=== PATIENT | female | born 1975 | race African-American/Black ===

== ENCOUNTER 2017-08-22 10:06 | Emergency (ER) | payer OTHER ==
[~2017-08-22] VITALS: Ht 167.6 cm; Wt 86.4 kg
[~2017-08-22 10:06] MED LIST: ALBU8.5H8 IH; AMITRIPTYLINE; ASPI81 PO; BACL10TA PO; METO25 PO; PRED20 PO; TRAM50TA4 PO
[2017-08-22] MEDS ORDERED: ALBUTEROL SULFATE 5 MG/ML 20 ML NEB SOLN [BULK] NEB ONE (10:44)
[2017-08-22] MEDS ORDERED: IPRATROPIUM BROMIDE 0.5 MG/2.5 ML NEB SOLUTION NEB ONE (10:45)
[2017-08-22] MEDS ORDERED: PredniSONE 20 MG TABLET PO ONE (10:45)
[2017-08-22 11:08] LABS: BASOPHILS % (AUTO) 0.3 % (0.0-2.0); EOSINOPHILS % (AUTO) 1.7 % (1.0-6.0); HEMATOCRIT 37.3 % (36-46); HEMOGLOBIN 12.3 g/dL (12.0-16.0); LYMPHOCYTES # (AUTO) 2.3 K/uL (1.0-4.8); LYMPHOCYTES % (AUTO) 24.8 % (22.0-44.0); MEAN CORPUSCULAR HEMOGLOBIN 28.2 pg (26.0-34.0); MEAN CORPUSCULAR VOLUME 85 fL (80-100); MONOCYTES # (AUTO) 0.6 K/uL (0.1-1.0); NEUTROPHILS # (AUTO) 6.3 K/uL (1.8-7.7); NEUTROPHILS % (AUTO) 67.2 % (40.0-70.0); PLATELET COUNT (AUTO) 425 K/uL (150-450); RED BLOOD CELL COUNT(AUTO) 4.37 MIL/uL (4.00-5.20); WHITE BLOOD COUNT (AUTO) 9.4 K/uL (4.5-11.0)
[2017-08-22 11:17] LABS: ANION GAP 8 mmol/L (8-16); CARBON DIOXIDE 32 mmol/L (22-29); CHLORIDE 102 mmol/L (98-107); GLOMERULAR FILTR. RATE CALC > 60 mL/min (>60); POTASSIUM 3.7 mmol/L (3.5-5.1); SODIUM SERUM 142 mmol/L (136-145); UREA NITROGEN, BLOOD 8 mg/dL (7-18)
[2017-08-22 11:23] LABS: ALANINE AMINOTRANSFERASE 31 U/L (12-78); ALBUMIN 3.8 g/dL (3.4-5.0); ASPARTATE AMINOTRANSFERASE 15 U/L (15-37); BILIRUBIN,TOTAL 0.5 mg/dL (0.1-1.0)
[2017-08-22] MEDS ORDERED: 0.9% SODIUM CHLORIDE 5 ML NEB SOLUTION NEB ONE (11:28)
[2017-08-22 11:29] LABS: B-TYPE NATRIURETIC PEPTIDE 18 pg/mL (0-100)
[2017-08-22] MEDS ORDERED: ONDANSETRON HCL 4 MG/2 ML VIAL IVP ONE (11:30)
[2017-08-22] MEDS ORDERED: MORPHINE SULFATE 4 MG/ML SYRINGE IVP ONE (11:30)
[2017-08-22 12:12] LABS: INFLUENZA TYPE B NEGATIVE FOR TYPE B (NEGATIVE)
[2017-08-22 13:34] VITALS: BP 164/104
== END 2017-08-22 14:02 | disposition home or self-care (01) ==
LOC: EMS 10:07
DX: D86.0 Sarcoidosis of lung (principal); I10 Essential (primary) hypertension; J45.909 Unspecified asthma, uncomplicated; M79.7 Fibromyalgia; Z79.82 Long term (current) use of aspirin; Z88.0 Allergy status to penicillin; G43.909 Migraine, unspecified, not intractable, without status migrainosus
CPT/HCPCS: 36415; 71010; 80053; 83690; 83880; 84484; 84703; 85025; 87804; 93005; 94644; 96374; 96375; 99285; J2270; J2405; J7512; J7611

== ENCOUNTER 2018-03-08 15:08 | Emergency (ER) | payer OTHER ==
[~2018-03-08] VITALS: Ht 170.2 cm; Wt 84.5 kg
[2018-03-08] MEDS ORDERED: CYCL10TA7 PO (15:24)
[2018-03-08] MEDS ORDERED: CETI10TA58 PO (15:24)
[2018-03-08] MEDS ORDERED: FOLI1TAB15 PO (15:24)
[2018-03-08] MEDS ORDERED: LINA290C PO (15:24)
[2018-03-08] MEDS ORDERED: OMEP40CA12 PO (15:24)
[2018-03-08] MEDS ORDERED: FLUC150T66 PO (15:24)
[2018-03-08] MEDS ORDERED: HYDR200T4 PO (15:24)
[2018-03-08] MEDS ORDERED: AMLO5TAB66 PO (15:24)
[2018-03-08] MEDS ORDERED: TRAM50TA4 PO (15:24)
[2018-03-08] MEDS ORDERED: METO50 PO (15:24)
[2018-03-08] MEDS ORDERED: AMIT100T2 PO (15:24)
[2018-03-08] MEDS ORDERED: ALBU2.5V2 NEB (15:24)
[2018-03-08] MEDS ORDERED: ONDANSETRON HCL 4 MG/2 ML VIAL IVP ONE (15:45)
[2018-03-08] MEDS ORDERED: KETOROLAC TROMETHAMINE 30 MG/ML VIAL IVP ONE (15:45)
[2018-03-08] MEDS ORDERED: SODIUM CHLORIDE 0.9% 1,000 ML IV ONE (15:45)
[2018-03-08 16:05] LABS: BASOPHILS % (AUTO) 1.2 % (0.0-2.0); EOSINOPHILS % (AUTO) 1.8 % (1.0-6.0); HEMATOCRIT 36.8 % (36-46); HEMOGLOBIN 12.1 g/dL (12.0-16.0); LYMPHOCYTES # (AUTO) 2.2 K/uL (1.0-4.8); LYMPHOCYTES % (AUTO) 30.7 % (22.0-44.0); MEAN CORPUSCULAR VOLUME 82 fL (80-100); MONOCYTES # (AUTO) 0.6 K/uL (0.1-1.0); NEUTROPHILS # (AUTO) 4.2 K/uL (1.8-7.7); NEUTROPHILS % (AUTO) 58.3 % (40.0-70.0); PLATELET COUNT (AUTO) 431 K/uL (150-450); RED CELL DISTRIBUTION WIDTH 15.3 % (11.5-14.5)
[2018-03-08 16:12] LABS: ANION GAP 5 mmol/L (8-16); CALCIUM, TOTAL 8.6 mg/dL (8.8-10.5); CARBON DIOXIDE 27 mmol/L (22-29); CHLORIDE 105 mmol/L (98-107); CREATININE 0.96 mg/dL (0.60-1.30); GLOMERULAR FILTR. RATE CALC > 60 mL/min (>60); GLUCOSE,RANDOM 84 mg/dL (70-110); POTASSIUM 3.8 mmol/L (3.5-5.1); SODIUM SERUM 137 mmol/L (136-145); UREA NITROGEN, BLOOD 9 mg/dL (7-18)
[2018-03-08 16:18] LABS: ALANINE AMINOTRANSFERASE 29 U/L (12-78); ALBUMIN 3.8 g/dL (3.4-5.0); ALKALINE PHOSPHATASE 73 U/L (46-116); ASPARTATE AMINOTRANSFERASE 18 U/L (15-37); BILIRUBIN,TOTAL 0.7 mg/dL (0.1-1.0); LIPASE 150 U/L (73-393); TOTAL PROTEIN, SERUM 7.5 g/dL (6.4-8.2)
[2018-03-08] MEDS ORDERED: HYDROCODONE/ACETAMINOPHEN 5-325 MG TABLET PO ONE (18:00)
[2018-03-08 18:07] VITALS: BP 169/89
== END 2018-03-08 18:09 | disposition home or self-care (01) ==
LOC: EMS 15:09
DX: D25.9 Leiomyoma of uterus, unspecified (principal); J45.909 Unspecified asthma, uncomplicated; I10 Essential (primary) hypertension; G43.909 Migraine, unspecified, not intractable, without status migrainosus; Z88.0 Allergy status to penicillin
CPT/HCPCS: 36415; 74176; 80053; 83690; 84703; 85025; 96361; 96374; 96375; 99285; J1885; J2405; J7030

== ENCOUNTER 2018-06-10 21:56 | Emergency (ER) | payer OTHER ==
[~2018-06-10] VITALS: Ht 165.1 cm; Wt 83.6 kg
[~2018-06-10 21:56] MED LIST changes: +ALBU2.5V2 NEB; -ALBU8.5H8 IH; +AMIT100T2 PO; -AMITRIPTYLINE; +AMLO5TAB66 PO; -BACL10TA PO; +CETI10TA58 PO; +CYCL10TA7 PO; +FLUC150T66 PO; +FOLI1TAB15 PO; +HYDR200T4 PO; +LINA290C PO; -METO25 PO; +METO50 PO; +OMEP40CA12 PO; -PRED20 PO
[2018-06-10] MEDS ORDERED: PRED20 PO (22:20)
[2018-06-10] MEDS ORDERED: METH2.5T6 PO (22:20)
[2018-06-10 23:13] LABS: EOSINOPHILS % (AUTO) 2.4 % (1.0-6.0); HEMATOCRIT 35.6 % (36-46); HEMOGLOBIN 11.7 g/dL (12.0-16.0); LYMPHOCYTES # (AUTO) 2.2 K/uL (1.0-4.8); LYMPHOCYTES % (AUTO) 25.5 % (22.0-44.0); MEAN CORPUSCULAR HEMOGLOBIN 26.1 pg (26.0-34.0); MEAN CORPUSCULAR HGB CONC 32.8 G/dL (31.0-37.0); MEAN CORPUSCULAR VOLUME 80 fL (80-100); MONOCYTES # (AUTO) 1.1 K/uL (0.1-1.0); MONOCYTES % (AUTO) 12.6 % (2.0-9.0); NEUTROPHILS # (AUTO) 5.1 K/uL (1.8-7.7); NEUTROPHILS % (AUTO) 58.5 % (40.0-70.0); PLATELET COUNT (AUTO) 445 K/uL (150-450); RED BLOOD CELL COUNT(AUTO) 4.48 MIL/uL (4.00-5.20); RED CELL DISTRIBUTION WIDTH 15.6 % (11.5-14.5)
[2018-06-10 23:22] LABS: ANION GAP 10 mmol/L (8-16); CALCIUM, TOTAL 8.8 mg/dL (8.8-10.5); CARBON DIOXIDE 26 mmol/L (22-29); CHLORIDE 104 mmol/L (98-107); CREATININE 1.02 mg/dL (0.60-1.30); GLOMERULAR FILTR. RATE CALC > 60 mL/min (>60); GLUCOSE,RANDOM 96 mg/dL (70-110); POTASSIUM 3.7 mmol/L (3.5-5.1); SODIUM SERUM 140 mmol/L (136-145); UREA NITROGEN, BLOOD 7 mg/dL (7-18)
[2018-06-10 23:27] LABS: ALANINE AMINOTRANSFERASE 26 U/L (12-78); ALBUMIN 3.7 g/dL (3.4-5.0); ALKALINE PHOSPHATASE 72 U/L (46-116); ASPARTATE AMINOTRANSFERASE 14 U/L (15-37); BILIRUBIN,TOTAL 0.3 mg/dL (0.1-1.0); TOTAL PROTEIN, SERUM 7.4 g/dL (6.4-8.2)
[2018-06-11 01:17] VITALS: BP 159/97
[2018-06-11 02:00] LABS: APPEARANCE,URINE CLEAR (CLEAR); BILIRUBIN,URINE NEGATIVE (NEGATIVE); GLUCOSE, URINE (UA) NEGATIVE (NEGATIVE); KETONES,URINE NEGATIVE (NEGATIVE); LEUKOCYTE ESTERASE ,URINE SMALL (NEGATIVE); NITRATE,URINE NEGATIVE (NEGATIVE); OCCULT BLOOD,URINE TRACE (NEGATIVE); PH,URINE 5.5 (5.0-8.0); PROTEIN,URINE NEGATIVE (NEGATIVE); UROBILINOGEN,URINE 0.2 mg/dL (<=1.0)
[2018-06-11 02:13] LABS: BACTERIA,URINE None Seen /HPF (None Seen)
[2018-06-11 02:14] LABS: SQUAMOUS EPITHELIAL CELL,UR Moderate /LPF (None Seen)
== END 2018-06-11 01:47 | disposition home or self-care (01) ==
LOC: EMS 21:56
DX: I10 Essential (primary) hypertension (principal); R07.89 Other chest pain; R10.9 Unspecified abdominal pain; J44.9 Chronic obstructive pulmonary disease, unspecified; M79.7 Fibromyalgia; G43.909 Migraine, unspecified, not intractable, without status migrainosus; D25.9 Leiomyoma of uterus, unspecified; Z98.51 Tubal ligation status; D86.0 Sarcoidosis of lung; Z88.0 Allergy status to penicillin; Z79.899 Other long term (current) drug therapy
CPT/HCPCS: 93005; 99285

== ENCOUNTER 2018-10-05 17:26 | Emergency (ER) | payer OTHER ==
[~2018-10-05] VITALS: Ht 175.3 cm; Wt 90.9 kg
[~2018-10-05 17:26] MED LIST changes: -ASPI81 PO; -FLUC150T66 PO; +METH2.5T6 PO; +PRED20 PO
[2018-10-05] MEDS ORDERED: SODIUM CHLORIDE 0.9% 1,000 ML IV ONE (19:15)
[2018-10-05] MEDS ORDERED: ONDANSETRON HCL 4 MG/2 ML VIAL IVP ONE (19:15)
[2018-10-05] MEDS ORDERED: FentaNYL CITRATE-PF 100 MCG/2 ML VIAL IVP ONE (20:00)
[2018-10-05 20:16] LABS: BASOPHILS % (AUTO) 0.9 % (0.0-2.0); EOSINOPHILS % (AUTO) 2.2 % (1.0-6.0); HEMATOCRIT 37.9 % (36-46); HEMOGLOBIN 12.4 g/dL (12.0-16.0); LYMPHOCYTES # (AUTO) 5.7 K/uL (1.0-4.8); LYMPHOCYTES % (AUTO) 50.9 % (22.0-44.0); MEAN CORPUSCULAR HEMOGLOBIN 26.1 pg (26.0-34.0); MEAN CORPUSCULAR HGB CONC 32.6 G/dL (31.0-37.0); MEAN CORPUSCULAR VOLUME 80 fL (80-100); MONOCYTES # (AUTO) 1.4 K/uL (0.1-1.0); MONOCYTES % (AUTO) 12.4 % (2.0-9.0); NEUTROPHILS # (AUTO) 3.7 K/uL (1.8-7.7); NEUTROPHILS % (AUTO) 33.6 % (40.0-70.0); PLATELET COUNT (AUTO) 458 K/uL (150-450); RED BLOOD CELL COUNT(AUTO) 4.74 MIL/uL (4.00-5.20)
[2018-10-05 20:23] LABS: ANION GAP 10 mmol/L (8-16); CALCIUM, TOTAL 9.3 mg/dL (8.8-10.5); CARBON DIOXIDE 27 mmol/L (22-29); CHLORIDE 103 mmol/L (98-107); CREATININE 0.93 mg/dL (0.60-1.30); GLOMERULAR FILTR. RATE CALC > 60 mL/min (>60); GLUCOSE,RANDOM 95 mg/dL (70-110); POTASSIUM 3.5 mmol/L (3.5-5.1); SODIUM SERUM 140 mmol/L (136-145); UREA NITROGEN, BLOOD 16 mg/dL (7-18)
[2018-10-05 20:34] LABS: ALANINE AMINOTRANSFERASE 43 U/L (12-78); ALBUMIN 3.6 g/dL (3.4-5.0); ALKALINE PHOSPHATASE 66 U/L (46-116); ASPARTATE AMINOTRANSFERASE 24 U/L (15-37); BILIRUBIN,TOTAL 0.4 mg/dL (0.1-1.0); HCG,QUANTITATIVE < 1 mIU/mL (0-6); LIPASE 150 U/L (73-393); TOTAL PROTEIN, SERUM 7.8 g/dL (6.4-8.2)
[2018-10-05 20:43] LABS: LACTIC ACID 1.5 mmol/L (0.4-2.0)
[2018-10-05] MEDS ORDERED: IOVERSOL 350 MG/ML 100 ML VIAL ONE (21:00)
[2018-10-05] MEDS ORDERED: SODIUM CHLORIDE 0.9% 100 ML ONE (21:00)
[2018-10-05] MEDS ORDERED: LOPERAMIDE HCL 2 MG CAPSULE PO ONE (23:00)
[2018-10-05] MEDS ORDERED: TraMADol HCL 50 MG TABLET PO ONE (23:00)
[2018-10-05] MEDS ORDERED: CYCLOBENZAPRINE HCL 10 MG TABLET PO ONE (23:00)
[2018-10-06] MEDS ORDERED: GADOBUTROL 1 MMOL/ML 10 ML VIAL IVP ONE (01:19)
[2018-10-06 03:39] VITALS: BP 136/84
== END 2018-10-06 03:46 | disposition home or self-care (01) ==
LOC: EMS 17:27
DX: R10.84 Generalized abdominal pain (principal); M79.7 Fibromyalgia; D86.9 Sarcoidosis, unspecified; R11.10 Vomiting, unspecified; D25.9 Leiomyoma of uterus, unspecified; K86.89 Other specified diseases of pancreas; I10 Essential (primary) hypertension; J45.909 Unspecified asthma, uncomplicated; Z88.0 Allergy status to penicillin
CPT/HCPCS: 36415; 71045; 71260; 74177; 74183; 80053; 82962; 83605; 83690; 84484; 84702; 85025; 93005; 96361; 96374; 96375; 99285; A9585; J2405; J3010; J7030; J7050; Q9967; 72193; 74160

== ENCOUNTER 2018-12-28 20:11 | Emergency (ER) | payer OTHER ==
[~2018-12-28] VITALS: Ht 167.6 cm; Wt 89.1 kg
[2018-12-28] MEDS ORDERED: KETOROLAC TROMETHAMINE 10 MG TABLET PO ONE (21:45)
[2018-12-28] MEDS ORDERED: DEXAMETHASONE 4 MG TABLET PO ONE (21:45)
[2018-12-28] MEDS ORDERED: METOCLOPRAMIDE HCL 10 MG TABLET PO ONE (21:45)
[2018-12-28] MEDS ORDERED: DiphenhydrAMINE HCL 25 MG CAPSULE PO ONE (21:45)
[2018-12-28 21:51] LABS: BASOPHILS % (AUTO) 1.2 % (0.0-2.0); EOSINOPHILS % (AUTO) 2.4 % (1.0-6.0); HEMATOCRIT 37.1 % (36-46); HEMOGLOBIN 11.9 g/dL (12.0-16.0); LYMPHOCYTES # (AUTO) 3.2 K/uL (1.0-4.8); LYMPHOCYTES % (AUTO) 49.4 % (22.0-44.0); MEAN CORPUSCULAR HGB CONC 32.2 G/dL (31.0-37.0); MEAN CORPUSCULAR VOLUME 78 fL (80-100); MONOCYTES # (AUTO) 0.6 K/uL (0.1-1.0); MONOCYTES % (AUTO) 9.5 % (2.0-9.0); NEUTROPHILS # (AUTO) 2.4 K/uL (1.8-7.7); NEUTROPHILS % (AUTO) 37.5 % (40.0-70.0); PLATELET COUNT (AUTO) 495 K/uL (150-450); RED BLOOD CELL COUNT(AUTO) 4.77 MIL/uL (4.00-5.20); RED CELL DISTRIBUTION WIDTH 16.4 % (11.5-14.5)
[2018-12-28 22:05] LABS: ANION GAP 10 mmol/L (8-16); CALCIUM, TOTAL 9.5 mg/dL (8.8-10.5); CARBON DIOXIDE 28 mmol/L (22-29); CHLORIDE 104 mmol/L (98-107); CREATININE 1.09 mg/dL (0.60-1.30); GLOMERULAR FILTR. RATE CALC > 60 mL/min (>60); GLUCOSE,RANDOM 106 mg/dL (70-110); SODIUM SERUM 142 mmol/L (136-145); UREA NITROGEN, BLOOD 12 mg/dL (7-18)
[2018-12-28 22:20] LABS: ALANINE AMINOTRANSFERASE 24 U/L (12-78); ALBUMIN 4.1 g/dL (3.4-5.0); ALKALINE PHOSPHATASE 64 U/L (46-116); ASPARTATE AMINOTRANSFERASE 15 U/L (15-37); HCG,QUANTITATIVE < 1 mIU/mL (0-6)
[2018-12-28] MEDS ORDERED: HYDROCHLOROTHIAZIDE 25 MG TABLET PO ONE (22:45)
[2018-12-28 23:41] VITALS: BP 148/98
== END 2018-12-28 23:42 | disposition home or self-care (01) ==
LOC: EMS 20:12
DX: R07.89 Other chest pain (principal); R51 Headache; I10 Essential (primary) hypertension; J45.909 Unspecified asthma, uncomplicated; Z88.0 Allergy status to penicillin; Z79.899 Other long term (current) drug therapy
CPT/HCPCS: 36415; 71045; 80053; 84484; 84702; 85025; 93005; 99285; J8540

== ENCOUNTER 2020-01-30 18:31 | Emergency (ER) | payer OTHER ==
[~2020-01-30] VITALS: Ht 165.1 cm; Wt 88.2 kg
[~2020-01-30 18:31] MED LIST changes: +INFL100I IV; -METH2.5T6 PO
[2020-01-30] MEDS ORDERED: METO25XL PO (18:45)
[2020-01-30] MEDS ORDERED: INFL100I IV (18:45)
[2020-01-30 19:17] LABS: BASOPHILS % (AUTO) 1.1 % (0.0-2.0); EOSINOPHILS % (AUTO) 3.3 % (1.0-6.0); HEMATOCRIT 32.5 % (36-46); HEMOGLOBIN 10.1 g/dL (12.0-16.0); LYMPHOCYTES # (AUTO) 3.3 K/uL (1.0-4.8); LYMPHOCYTES % (AUTO) 46.4 % (22.0-44.0); MEAN CORPUSCULAR HEMOGLOBIN 22.7 pg (26.0-34.0); MEAN CORPUSCULAR HGB CONC 31.2 G/dL (31.0-37.0); MEAN CORPUSCULAR VOLUME 73 fL (80-100); MONOCYTES # (AUTO) 0.7 K/uL (0.1-1.0); MONOCYTES % (AUTO) 9.3 % (2.0-9.0); NEUTROPHILS # (AUTO) 2.9 K/uL (1.8-7.7); NEUTROPHILS % (AUTO) 39.9 % (40.0-70.0); PLATELET COUNT (AUTO) 479 K/uL (150-450); RED BLOOD CELL COUNT(AUTO) 4.47 MIL/uL (4.00-5.20); RED CELL DISTRIBUTION WIDTH 17.3 % (11.5-14.5)
[2020-01-30] MEDS ORDERED: KETOROLAC TROMETHAMINE 30 MG/ML VIAL IVP ONE (20:00)
[2020-01-30 21:51] VITALS: BP 167/107
== END 2020-01-30 21:55 | disposition home or self-care (01) ==
LOC: EMS 18:31
DX: D25.9 Leiomyoma of uterus, unspecified (principal); J45.909 Unspecified asthma, uncomplicated; I10 Essential (primary) hypertension; G43.909 Migraine, unspecified, not intractable, without status migrainosus; F12.90 Cannabis use, unspecified, uncomplicated; Z88.0 Allergy status to penicillin; Z88.6 Allergy status to analgesic agent
CPT/HCPCS: 36415; 76856; 84702; 85025; 96374; 99284; J1885

== ENCOUNTER 2021-10-13 10:53 | Emergency (ER) | payer OTHER ==
[~2021-10-13] VITALS: Ht 165.1 cm; Wt 88.0 kg
[~2021-10-13 10:53] MED LIST changes: -ALBU2.5V2 NEB; -AMIT100T2 PO; +AMLO-258 PO; -AMLO5TAB66 PO; -CETI10TA58 PO; -CYCL10TA7 PO; -FOLI1TAB15 PO; -HYDR200T4 PO; +LISI-892 PO; +METO25 PO; -METO50 PO; +MOME13HF2 PO; +OMEP20CA12 PO; -OMEP40CA12 PO; -PRED20 PO; +ROSU10TA72 PO; -TRAM50TA4 PO
[2021-10-13 11:16] VITALS: BP 162/94
== END 2021-10-13 15:26 | disposition left against medical advice (07) ==
LOC: EMS 11:16
DX: R07.89 Other chest pain (principal); Z53.21 Procedure and treatment not carried out due to patient leaving prior to being seen by health care provider

== ENCOUNTER 2022-04-23 19:41 | Emergency (ER) | payer OTHER ==
[~2022-04-23] VITALS: Ht 167.6 cm; Wt 86.8 kg
[2022-04-23] MEDS ORDERED: CHOL100062 PO (19:55)
[2022-04-23] MEDS ORDERED: ATOR40TA71 PO (19:55)
[2022-04-23] MEDS ORDERED: CARV12.530 PO (19:55)
[2022-04-23] MEDS ORDERED: AMIT50TA3 PO (19:55)
[2022-04-23] MEDS ORDERED: NITR0.4T50 SL (19:55)
[2022-04-23] MEDS ORDERED: FERR325T23 PO (19:55)
[2022-04-23] MEDS ORDERED: LOSA1TAB37 PO (19:55)
[2022-04-23] MEDS ORDERED: FLUT16H NASAL (19:55)
[2022-04-23] MEDS ORDERED: NORE0.3517 PO (19:58)
[2022-04-23] MEDS ORDERED: SODIUM CHLORIDE 0.9% 1,000 ML IV ONE (21:15)
[2022-04-23 21:22] LABS: BASOPHILS % (AUTO) 0.8 % (0.0-2.0); EOSINOPHILS % (AUTO) 2.4 % (1.0-6.0); HEMATOCRIT 37.6 % (36-46); HEMOGLOBIN 12.6 g/dL (12.0-16.0); LYMPHOCYTES % (AUTO) 42.6 % (22.0-44.0); MEAN CORPUSCULAR HEMOGLOBIN 28.4 pg (26.0-34.0); MEAN CORPUSCULAR HGB CONC 33.4 G/dL (31.0-37.0); MEAN CORPUSCULAR VOLUME 85 fL (80-100); MONOCYTES # (AUTO) 0.8 K/uL (0.1-1.0); MONOCYTES % (AUTO) 8.8 % (2.0-9.0); NEUTROPHILS # (AUTO) 4.3 K/uL (1.8-7.7); NEUTROPHILS % (AUTO) 45.4 % (40.0-70.0); PLATELET COUNT (AUTO) 352 K/uL (150-450); RED BLOOD CELL COUNT(AUTO) 4.43 MIL/uL (4.00-5.20); RED CELL DISTRIBUTION WIDTH 17.3 % (11.5-14.5)
[2022-04-23 21:30] LABS: ANION GAP 12 mmol/L (8-16); CALCIUM, TOTAL 8.6 mg/dL (8.8-10.5); CARBON DIOXIDE 26 mmol/L (22-29); CHLORIDE 102 mmol/L (98-107); CREATININE 1.01 mg/dL (0.60-1.30); GLUCOSE,RANDOM 83 mg/dL (70-110); POTASSIUM 3.2 mmol/L (3.5-5.1); SODIUM SERUM 140 mmol/L (136-145); UREA NITROGEN, BLOOD 15 mg/dL (7-18)
[2022-04-23 21:31] LABS: GLOMERULAR FILTR. RATE CALC > 60 mL/min (>60)
[2022-04-23 21:42] LABS: ALANINE AMINOTRANSFERASE 29 U/L (12-78); ALKALINE PHOSPHATASE 69 U/L (46-116); ASPARTATE AMINOTRANSFERASE 22 U/L (15-37); HCG,QUANTITATIVE < 1 mIU/mL (0-6); LIPASE 120 U/L (73-393); TOTAL PROTEIN, SERUM 7.9 g/dL (6.4-8.2)
[2022-04-23] MEDS ORDERED: IOHEXOL 350 MG/ML 100 ML VIAL ONE (22:33)
[2022-04-23] MEDS ORDERED: SODIUM CHLORIDE 0.9% 100 ML ONE (22:34)
[2022-04-24] MEDS ORDERED: PB/HYOSCY/ATR/SCOP/LIDO/MAALOX 55 ML BOTTLE PO ONE (00:45)
[2022-04-24 01:27] VITALS: BP 122/73
== END 2022-04-24 01:56 | disposition home or self-care (01) ==
LOC: EMS 19:42
DX: R10.9 Unspecified abdominal pain (principal); D86.0 Sarcoidosis of lung; Z87.39 Personal history of other diseases of the musculoskeletal system and connective tissue; Z87.19 Personal history of other diseases of the digestive system; Z98.890 Other specified postprocedural states; Z88.4 Allergy status to anesthetic agent; Z88.0 Allergy status to penicillin; Z88.8 Allergy status to other drugs, medicaments and biological substances; Z91.09 Other allergy status, other than to drugs and biological substances
CPT/HCPCS: 99285; 74177; 96360; 71045; 80053; 83690; 84484; 84702; 85025; 36415; Q9967; J7030; J7050

== ENCOUNTER 2022-10-01 21:37 | Emergency (ER) | payer OTHER ==
[~2022-10-01] VITALS: Ht 167.6 cm; Wt 83.0 kg
[~2022-10-01 21:37] MED LIST changes: +AMIT50TA3 PO; +ATOR40TA71 PO; +CARV12.530 PO; +CHOL100062 PO; +FERR325T23 PO; +FLUT16SP NASAL; -INFL100I IV; -LISI-892 PO; +LOSA1TAB37 PO; -METO25 PO; +NITR0.4T50 SL; +NORE0.3517 PO; -ROSU10TA72 PO
[2022-10-01] MEDS ORDERED: ACETAMINOPHEN 500 MG TABLET PO ONE (23:15)
[2022-10-01] MEDS ORDERED: KETOROLAC TROMETHAMINE 30 MG/ML VIAL IM ONE (23:15)
[2022-10-01] MEDS: LIDOCAINE 5% TRANSDERMAL PATCH TD ONE ×2 (23:31→23:47)
[2022-10-02 00:20] VITALS: BP 151/94
== END 2022-10-02 00:22 | disposition home or self-care (01) ==
LOC: EMS 21:49
DX: M25.511 Pain in right shoulder (principal); M79.7 Fibromyalgia; D86.9 Sarcoidosis, unspecified; M75.01 Adhesive capsulitis of right shoulder; M54.12 Radiculopathy, cervical region; Z88.0 Allergy status to penicillin; Z88.6 Allergy status to analgesic agent; M51.25 Other intervertebral disc displacement, thoracolumbar region
CPT/HCPCS: 99283; 73030; 96372; J1885

== ENCOUNTER 2023-09-28 16:14 | Emergency (ER) | payer OTHER ==
[~2023-09-28] VITALS: Ht 165.1 cm; Wt 82.0 kg
[~2023-09-28 16:14] MED LIST changes: +MOME13HF12 IH; -MOME13HF2 PO
[2023-09-28 16:24] VITALS: TEMP 98.3
[2023-09-28] MEDS ORDERED: EZET10TA57 PO (16:29)
[2023-09-28 17:26] LABS: BASOPHILS % (AUTO) 1.2 % (0.0-2.0); EOSINOPHILS % (AUTO) 3.3 % (1.0-6.0); HEMATOCRIT 37.2 % (36-46); HEMOGLOBIN 12.2 g/dL (12.0-16.0); LYMPHOCYTES % (AUTO) 40.3 % (22.0-44.0); MEAN CORPUSCULAR HEMOGLOBIN 25.5 pg (26.0-34.0); MEAN CORPUSCULAR HGB CONC 32.9 G/dL (31.0-37.0); MEAN CORPUSCULAR VOLUME 77 fL (80-100); MONOCYTES # (AUTO) 0.7 K/uL (0.1-1.0); MONOCYTES % (AUTO) 9.6 % (2.0-9.0); NEUTROPHILS # (AUTO) 3.4 K/uL (1.8-7.7); NEUTROPHILS % (AUTO) 45.6 % (40.0-70.0); PLATELET COUNT (AUTO) 469 K/uL (150-450); RED BLOOD CELL COUNT(AUTO) 4.81 MIL/uL (4.00-5.20); RED CELL DISTRIBUTION WIDTH 16.3 % (11.5-14.5); WHITE BLOOD COUNT (AUTO) 7.5 K/uL (4.5-11.0)
[2023-09-28 17:36] LABS: ANION GAP 10 mmol/L (8-16); CALCIUM, TOTAL 9.6 mg/dL (8.8-10.5); CARBON DIOXIDE 27 mmol/L (22-29); CHLORIDE 97 mmol/L (98-107); CREATININE 0.99 mg/dL (0.60-1.30); GLOMERULAR FILTR. RATE CALC > 60 mL/min (>60); GLUCOSE,RANDOM 86 mg/dL (70-110); POTASSIUM 3.7 mmol/L (3.5-5.1); SODIUM SERUM 134 mmol/L (136-145); UREA NITROGEN, BLOOD 10 mg/dL (7-18)
[2023-09-28 17:43] LABS: TROPONIN I-HIGH SENSITIVITY 6 ng/L (<51)
[2023-09-28 17:45] LABS: ALANINE AMINOTRANSFERASE 21 U/L (12-78); ALBUMIN 4.3 g/dL (3.4-5.0); ALKALINE PHOSPHATASE 75 U/L (46-116); ASPARTATE AMINOTRANSFERASE 18 U/L (15-37); TOTAL PROTEIN, SERUM 8.9 g/dL (6.4-8.2)
[2023-09-28 17:52] LABS: B-TYPE NATRIURETIC PEPTIDE 15 pg/mL (0-100)
[2023-09-28] MEDS ORDERED: ONDANSETRON HCL 4 MG/2 ML VIAL IM ONE (19:00)
[2023-09-28] MEDS ORDERED: HYDROmorphone HCL 2 MG/ML SYRINGE IM ONE (19:00)
[2023-09-28] MEDS ORDERED: AmLODIPine BESYLATE 10 MG TABLET PO ONE (19:00)
[2023-09-28] MEDS ORDERED: SODIUM CHLORIDE 0.9% 100 ML ONE (19:01)
[2023-09-28] MEDS ORDERED: IOHEXOL 350 MG/ML 100 ML VIAL ONE (19:02)
[2023-09-28] MEDS ORDERED: ALBU18HF12 IH (19:05)
[2023-09-28] MEDS ORDERED: LORA-999 PO (19:05)
[2023-09-28] MEDS ORDERED: ROSU40TA70 PO (19:05)
[2023-09-28] MEDS ORDERED: BISA-183 PO (19:05)
[2023-09-28] MEDS ORDERED: BUSP15TA3 PO (19:05)
[2023-09-28] MEDS ORDERED: DULO-113 PO (19:05)
[2023-09-28] MEDS ORDERED: CETI10TA58 PO (19:05)
[2023-09-28 19:47] LABS: TROPONIN I-HIGH SENSITIVITY 7 ng/L (<51)
[2023-09-28 21:26] LABS: APPEARANCE,URINE CLEAR (CLEAR); BILIRUBIN,URINE NEGATIVE (NEGATIVE); COLOR,URINE LIGHT YELLOW (YELLOW); GLUCOSE, URINE (UA) NEGATIVE (NEGATIVE); LEUKOCYTE ESTERASE ,URINE NEGATIVE (NEGATIVE); NITRATE,URINE NEGATIVE (NEGATIVE); OCCULT BLOOD,URINE TRACE (NEGATIVE); PROTEIN,URINE NEGATIVE (NEGATIVE); SPECIFIC GRAVITIY, URINE 1.014 (1.003-1.030); UROBILINOGEN,URINE <=1.0 mg/dL (<=1.0)
[2023-09-28 21:38] LABS: BACTERIA,URINE Rare /HPF (None Seen); SQUAMOUS EPITHELIAL CELL,UR Few /LPF (None Seen); WBC,URINE 0-2 /HPF (0-5)
[2023-09-28 21:57] VITALS: BP 130/90; PULSE 84; RESP 16
== END 2023-09-28 22:29 | disposition home or self-care (01) ==
LOC: EMS 16:14
DX: R07.89 Other chest pain (principal); Z87.09 Personal history of other diseases of the respiratory system; Z98.890 Other specified postprocedural states; Z88.0 Allergy status to penicillin; Z88.6 Allergy status to analgesic agent; Z88.8 Allergy status to other drugs, medicaments and biological substances
CPT/HCPCS: 99291; 71275; 71045; 80053; 81001; 83880; 84484; 85025; 36415; 93005; 96372; J1170; J2405; Q9967; J7050

== ENCOUNTER 2023-11-12 18:07 | Emergency (ER) | payer OTHER ==
[~2023-11-12] VITALS: Ht 170.2 cm; Wt 83.6 kg
[~2023-11-12 18:07] MED LIST changes: +ALBU18HF12 IH; -ATOR40TA71 PO; +BISA-183 PO; +BUSP15TA3 PO; +CETI10TA58 PO; +DULO-113 PO; +EZET10TA57 PO; +LORA-999 PO; +ROSU40TA70 PO
[2023-11-12 18:14] VITALS: BP 156/100; PULSE 85; RESP 18
[2023-11-12] MEDS ORDERED: TROL85CR TP (18:34)
[2023-11-12] MEDS ORDERED: TRIA1CAP87 PO (18:34)
[2023-11-12] MEDS ORDERED: ATOR40TA28 PO (18:34)
[2023-11-12 18:35] LABS: COVID AG,FIA SOURCE NASAL SWAB
[2023-11-12 18:49] LABS: RESPIRATORY SYNCYTIAL VIRS,FIA NEGATIVE (Negative)
[2023-11-12 19:05] LABS: INFLUENZA TYPE A NEGATIVE FOR TYPE A (NEGATIVE); INFLUENZA TYPE B NEGATIVE FOR TYPE B (NEGATIVE)
[2023-11-12 19:27] LABS: BASOPHILS % (AUTO) 0.6 % (0.0-2.0); EOSINOPHILS % (AUTO) 0.2 % (1.0-6.0); LYMPHOCYTES # (AUTO) 2.7 K/uL (1.0-4.8); MEAN CORPUSCULAR HGB CONC 32.4 G/dL (31.0-37.0); MEAN CORPUSCULAR VOLUME 77 fL (80-100); MONOCYTES # (AUTO) 1.5 K/uL (0.1-1.0); MONOCYTES % (AUTO) 17.1 % (2.0-9.0); NEUTROPHILS # (AUTO) 4.6 K/uL (1.8-7.7); NEUTROPHILS % (AUTO) 52.1 % (40.0-70.0); PLATELET COUNT (AUTO) 379 K/uL (150-450); RED CELL DISTRIBUTION WIDTH 16.9 % (11.5-14.5); WHITE BLOOD COUNT (AUTO) 8.8 K/uL (4.5-11.0)
[2023-11-12 19:28] LABS: ANION GAP 12 mmol/L (8-16); CALCIUM, TOTAL 9.3 mg/dL (8.8-10.5); CARBON DIOXIDE 24 mmol/L (22-29); CHLORIDE 100 mmol/L (98-107); CREATININE 0.92 mg/dL (0.60-1.30); GLOMERULAR FILTR. RATE CALC > 60 mL/min (>60); GLUCOSE,RANDOM 88 mg/dL (70-110); POTASSIUM 3.6 mmol/L (3.5-5.1); SODIUM SERUM 136 mmol/L (136-145); UREA NITROGEN, BLOOD 10 mg/dL (7-18)
[2023-11-12 19:32] LABS: SARS-COV2 (COVID) ANTIGEN,FIA Positive (Negative)
[2023-11-12 19:36] LABS: TROPONIN I-HIGH SENSITIVITY 4 ng/L (<51)
[2023-11-12 19:39] LABS: B-TYPE NATRIURETIC PEPTIDE 23 pg/mL (0-100)
[2023-11-12 19:56] LABS: ALANINE AMINOTRANSFERASE 22 U/L (12-78); ALBUMIN 3.8 g/dL (3.4-5.0); ALKALINE PHOSPHATASE 69 U/L (46-116); ASPARTATE AMINOTRANSFERASE 16 U/L (15-37); BILIRUBIN,TOTAL 0.6 mg/dL (0.1-1.0); CREATINE KINASE, TOTAL ONLY 115 U/L (26-192); TOTAL PROTEIN, SERUM 7.9 g/dL (6.4-8.2)
== END 2023-11-12 21:44 | disposition left against medical advice (07) ==
LOC: EMS 18:07
DX: R07.9 Chest pain, unspecified (principal); R06.02 Shortness of breath; Z20.822 Contact with and (suspected) exposure to COVID-19; Z53.21 Procedure and treatment not carried out due to patient leaving prior to being seen by health care provider
CPT/HCPCS: 71045; 80053; 82550; 83880; 84484; 85025; 87420; 87804; 93005; 99281; 36415-L1; 36415-TC

== ENCOUNTER 2024-07-21 14:12 | Emergency (ER) | payer OTHER ==
[~2024-07-21] VITALS: Ht 165.1 cm; Wt 68.2 kg
[~2024-07-21 14:12] MED LIST changes: +ATOR40TA28 PO; -BUSP15TA3 PO; -FERR325T23 PO; -FLUT16SP NASAL; +IBUP-1554 PO; -ROSU40TA70 PO; +TRIA1CAP87 PO; +TROL85CR TP
[2024-07-21 14:58] LABS: BASOPHILS % (AUTO) 0.6 % (0.0-2.0); EOSINOPHILS % (AUTO) 1.8 % (1.0-6.0); HEMATOCRIT 45.6 % (36-46); HEMOGLOBIN 15.1 g/dL (12.0-16.0); LYMPHOCYTES # (AUTO) 3.9 K/uL (1.0-4.8); LYMPHOCYTES % (AUTO) 48.6 % (22.0-44.0); MEAN CORPUSCULAR HEMOGLOBIN 30.4 pg (26.0-34.0); MEAN CORPUSCULAR HGB CONC 33.1 G/dL (31.0-37.0); MEAN CORPUSCULAR VOLUME 92 fL (80-100); MONOCYTES # (AUTO) 0.7 K/uL (0.1-1.0); MONOCYTES % (AUTO) 8.3 % (2.0-9.0); NEUTROPHILS # (AUTO) 3.3 K/uL (1.8-7.7); NEUTROPHILS % (AUTO) 40.7 % (40.0-70.0); PLATELET COUNT (AUTO) 470 K/uL (150-450); RED BLOOD CELL COUNT(AUTO) 4.96 MIL/uL (4.00-5.20); WHITE BLOOD COUNT (AUTO) 8.1 K/uL (4.5-11.0)
[2024-07-21 15:10] LABS: ANION GAP 9 mmol/L (8-16); CALCIUM, TOTAL 8.9 mg/dL (8.8-10.5); CARBON DIOXIDE 26 mmol/L (22-29); CHLORIDE 100 mmol/L (98-107); CREATININE 1.54 mg/dL (0.60-1.30); GLOMERULAR FILTR. RATE CALC 44 mL/min (>60); GLUCOSE,RANDOM 141 mg/dL (70-110); POTASSIUM 3.7 mmol/L (3.5-5.1); SODIUM SERUM 135 mmol/L (136-145); UREA NITROGEN, BLOOD 23 mg/dL (7-18)
[2024-07-21 15:20] LABS: TROPONIN I-HIGH SENSITIVITY 5 ng/L (<51)
[2024-07-21 15:30] LABS: B-TYPE NATRIURETIC PEPTIDE < 5 pg/mL (0-100)
[2024-07-21 15:44] LABS: ALANINE AMINOTRANSFERASE 17 U/L (12-78); ALBUMIN 4.1 g/dL (3.4-5.0); ALKALINE PHOSPHATASE 70 U/L (46-116); ASPARTATE AMINOTRANSFERASE 13 U/L (15-37); BILIRUBIN,TOTAL 1.3 mg/dL (0.1-1.0); CREATINE KINASE, TOTAL ONLY 97 U/L (26-192); TOTAL PROTEIN, SERUM 8.3 g/dL (6.4-8.2)
[2024-07-21 16:22] LABS: APPEARANCE,URINE HAZY (CLEAR); BILIRUBIN,URINE NEGATIVE (NEGATIVE); COLOR,URINE YELLOW (YELLOW); GLUCOSE, URINE (UA) NEGATIVE (NEGATIVE); KETONES,URINE NEGATIVE (NEGATIVE); LEUKOCYTE ESTERASE ,URINE NEGATIVE (NEGATIVE); NITRATE,URINE NEGATIVE (NEGATIVE); OCCULT BLOOD,URINE NEGATIVE (NEGATIVE); PH,URINE 5.5 (5.0-8.0); PROTEIN,URINE 30-70 mg/dL (NEGATIVE); SPECIFIC GRAVITIY, URINE 1.024 (1.003-1.030)
[2024-07-21 17:32] LABS: TROPONIN I-HIGH SENSITIVITY 5 ng/L (<51)
[2024-07-21 17:47] LABS: COVID AG,FIA SOURCE NASAL SWAB
[2024-07-21 18:11] LABS: SARS-COV2 (COVID) ANTIGEN,FIA Negative (Negative)
[2024-07-21 18:12] LABS: INFLUENZA TYPE A NEGATIVE FOR TYPE A (NEGATIVE); INFLUENZA TYPE B NEGATIVE FOR TYPE B (NEGATIVE)
[2024-07-21 18:30] VITALS: BP 118/84; PULSE 83; RESP 16; TEMP 97.9; O2SAT 100
== END 2024-07-21 18:38 | disposition home or self-care (01) ==
LOC: EMS 14:12
DX: R06.02 Shortness of breath (principal); R07.89 Other chest pain; R00.2 Palpitations; D86.9 Sarcoidosis, unspecified; I50.9 Heart failure, unspecified; Z79.51 Long term (current) use of inhaled steroids; Z88.0 Allergy status to penicillin; Z88.6 Allergy status to analgesic agent; Z98.890 Other specified postprocedural states; Z20.822 Contact with and (suspected) exposure to COVID-19
CPT/HCPCS: 71045; 80053; 81003; 82550; 83880; 84484; 85025; 87804; 93005; 99285; 36415-L1; 36415-TC

== ENCOUNTER 2024-12-23 10:12 | Emergency (ER) | payer OTHER ==
[~2024-12-23] VITALS: Ht 165.1 cm; Wt 85.0 kg
[~2024-12-23 10:12] MED LIST changes: -DULO-113 PO; +DULO60CA98 PO; -LORA-999 PO; +LORA0.5T20 PO
[2024-12-23 10:41] LABS: BASOPHILS % (AUTO) 1.2 % (0.0-2.0); EOSINOPHILS % (AUTO) 2.1 % (1.0-6.0); HEMATOCRIT 41.4 % (36-46); HEMOGLOBIN 13.4 g/dL (12.0-16.0); LYMPHOCYTES % (AUTO) 50.4 % (22.0-44.0); MEAN CORPUSCULAR HEMOGLOBIN 28.9 pg (26.0-34.0); MEAN CORPUSCULAR HGB CONC 32.5 G/dL (31.0-37.0); MEAN CORPUSCULAR VOLUME 89 fL (80-100); MONOCYTES # (AUTO) 0.7 K/uL (0.1-1.0); NEUTROPHILS % (AUTO) 37.3 % (40.0-70.0); PLATELET COUNT (AUTO) 419 K/uL (150-450); RED BLOOD CELL COUNT(AUTO) 4.65 MIL/uL (4.00-5.20); RED CELL DISTRIBUTION WIDTH 13.8 % (11.5-14.5)
[2024-12-23 10:49] LABS: ANION GAP 11 mmol/L (8-16); CALCIUM, TOTAL 9.2 mg/dL (8.8-10.5); CARBON DIOXIDE 28 mmol/L (22-29); CHLORIDE 102 mmol/L (98-107); CREATININE 0.75 mg/dL (0.60-1.30); GLOMERULAR FILTR. RATE CALC > 60 mL/min (>60); GLUCOSE,RANDOM 100 mg/dL (70-110); LIPASE 40 U/L (16-77); POTASSIUM 3.7 mmol/L (3.5-5.1); SODIUM SERUM 141 mmol/L (136-145); UREA NITROGEN, BLOOD 8 mg/dL (7-18)
[2024-12-23 10:53] LABS: ALBUMIN 3.7 g/dL (3.4-5.0); BILIRUBIN,DIRECT 0.1 mg/dL (0.00-0.20); BILIRUBIN,TOTAL 0.6 mg/dL (0.1-1.0); TOTAL PROTEIN, SERUM 7.9 g/dL (6.4-8.2)
[2024-12-23 11:37] LABS: HCG,QUANTITATIVE 1 mIU/mL (0-6)
[2024-12-23] MEDS: PB/HYOSCY/ATR/SCOP/LIDO/MAALOX 55 ML BOTTLE PO ONE (12:41)
[2024-12-23 12:48] LABS: INFLUENZA TYPE A NEGATIVE FOR TYPE A (NEGATIVE); INFLUENZA TYPE B NEGATIVE FOR TYPE B (NEGATIVE)
[2024-12-23 13:22] LABS: APPEARANCE,URINE CLEAR (CLEAR); BILIRUBIN,URINE NEGATIVE (NEGATIVE); COLOR,URINE LIGHT YELLOW (YELLOW); GLUCOSE, URINE (UA) NEGATIVE (NEGATIVE); KETONES,URINE NEGATIVE (NEGATIVE); LEUKOCYTE ESTERASE ,URINE NEGATIVE (NEGATIVE); NITRATE,URINE NEGATIVE (NEGATIVE); OCCULT BLOOD,URINE NEGATIVE (NEGATIVE); PROTEIN,URINE NEGATIVE (NEGATIVE); SPECIFIC GRAVITIY, URINE 1.022 (1.003-1.030); UROBILINOGEN,URINE <=1.0 mg/dL (<=1.0)
[2024-12-23] MEDS ORDERED: ONDA-104 PO (14:03)
[2024-12-23 14:27] VITALS: BP 155/99; PULSE 84; RESP 19; TEMP 97.6; O2SAT 99
== END 2024-12-23 14:29 | disposition home or self-care (01) ==
LOC: EMS 10:14
DX: A05.9 Bacterial foodborne intoxication, unspecified (principal); R19.7 Diarrhea, unspecified; R11.2 Nausea with vomiting, unspecified; I11.0 Hypertensive heart disease with heart failure; I50.9 Heart failure, unspecified; Z88.0 Allergy status to penicillin; Z88.6 Allergy status to analgesic agent; Z88.8 Allergy status to other drugs, medicaments and biological substances; Z79.899 Other long term (current) drug therapy; Z79.51 Long term (current) use of inhaled steroids
CPT/HCPCS: 80048; 80076; 81003; 83690; 84702; 85025; 87804; 99283